=== PATIENT | female | born 1950 | race Caucasian/White ===

== ENCOUNTER → 2019-06-15 | Outpatient (CLI) | payer OTHER | END | disposition home or self-care (01) | LOC: RAD 13:39 | DX: M25.512 Pain in left shoulder (principal) ==

== ENCOUNTER 2019-12-21 08:14 | Outpatient (CLI) | payer OTHER | END 2019-12-21 08:31 | disposition home or self-care (01) | LOC: NUCLEAR 08:14 | PROVIDERS: ATTEND Internal Medicine | DX: C85.88 Other specified types of non-Hodgkin lymphoma, lymph nodes of multiple sites (principal) | CPT/HCPCS: 78815; A9552 ==

== ENCOUNTER 2020-08-29 08:00 | Outpatient (CLI) | payer OTHER | END 2020-08-29 08:03 | disposition home or self-care (01) | LOC: NUCLEAR 08:00 | PROVIDERS: ATTEND Emergency Medicine | DX: C85.88 Other specified types of non-Hodgkin lymphoma, lymph nodes of multiple sites (principal); R11.2 Nausea with vomiting, unspecified | CPT/HCPCS: 78816; A9552 ==

== ENCOUNTER → 2020-12-13 | Outpatient (CLI) | payer OTHER | END | disposition home or self-care (01) | LOC: MAMO-SONO 09:33 | PROVIDERS: ATTEND Internal Medicine | DX: N60.12 Diffuse cystic mastopathy of left breast (principal); N60.11 Diffuse cystic mastopathy of right breast; Z12.31 Encounter for screening mammogram for malignant neoplasm of breast ==

== ENCOUNTER 2021-02-23 08:14 | Outpatient (CLI) | payer OTHER | END 2021-02-23 10:04 | disposition home or self-care (01) | LOC: TOM 08:14 | DX: R10.84 Generalized abdominal pain (principal); D18.09 Hemangioma of other sites; C85.80 Other specified types of non-Hodgkin lymphoma, unspecified site; R11.2 Nausea with vomiting, unspecified | CPT/HCPCS: 70491; 71260; 74177; Q9965 ==

== ENCOUNTER 2021-08-31 07:15 | Outpatient (CLI) | payer OTHER | END 2021-08-31 07:19 | disposition home or self-care (01) | LOC: TOM 07:15 | PROVIDERS: ATTEND Internal Medicine Hematology & Oncology | DX: C85.80 Other specified types of non-Hodgkin lymphoma, unspecified site (principal); R11.2 Nausea with vomiting, unspecified | CPT/HCPCS: 70491; 71260; 74177; Q9965 ==

== ENCOUNTER 2022-02-07 07:07 | Outpatient (CLI) | payer OTHER | END 2022-02-07 07:15 | disposition home or self-care (01) | LOC: MAMO-SONO 07:07 | PROVIDERS: ATTEND Internal Medicine | DX: N63.0 Unspecified lump in unspecified breast (principal); N63.11 Unspecified lump in the right breast, upper outer quadrant; N63.42 Unspecified lump in left breast, subareolar ==

== ENCOUNTER 2022-02-28 13:14 | Outpatient (CLI) | payer OTHER | END 2022-02-28 13:18 | disposition home or self-care (01) | LOC: NUCLEAR 13:14 | PROVIDERS: ATTEND Internal Medicine | DX: M81.0 Age-related osteoporosis without current pathological fracture (principal) ==

== ENCOUNTER → 2022-03-11 | Outpatient (CLI) | payer OTHER | END | disposition home or self-care (01) | LOC: TOM 07:20 | PROVIDERS: ATTEND Internal Medicine Hematology & Oncology | DX: C85.80 Other specified types of non-Hodgkin lymphoma, unspecified site (principal); R11.2 Nausea with vomiting, unspecified | CPT/HCPCS: 70491; 71260; 74177; Q9965 ==

== ENCOUNTER 2022-06-24 12:01 | Emergency (ER) | payer OTHER ==
[~2022-06-24] VITALS: Ht 160 cm; Wt 70.3 kg
[2022-06-24] MEDS ORDERED: ZYRTEC10 MG PO (18:06)
[2022-06-24] MEDS ORDERED: PEPCID AC20 MG PO (18:06)
== END 2022-06-24 18:22 | disposition home or self-care (01) ==
LOC: ER 12:01
DX: R10.9 Unspecified abdominal pain (principal); Z88.6 Allergy status to analgesic agent; Z88.0 Allergy status to penicillin; Z20.822 Contact with and (suspected) exposure to COVID-19

== ENCOUNTER 2022-08-09 12:09 | Outpatient (CLI) | payer OTHER ==
[~2022-08-09 12:09] MED LIST: PEPCID AC20 MG PO; ZYRTEC10 MG PO
== END 2022-08-09 12:18 | disposition home or self-care (01) ==
LOC: RAD 12:09
PROVIDERS: ATTEND Internal Medicine
DX: J44.9 Chronic obstructive pulmonary disease, unspecified (principal)

== ENCOUNTER 2022-12-13 07:32 | Outpatient (CLI) | payer OTHER | END 2022-12-13 07:33 | disposition home or self-care (01) | LOC: NUCLEAR 07:32 | PROVIDERS: ATTEND Internal Medicine Hematology & Oncology | DX: C85.80 Other specified types of non-Hodgkin lymphoma, unspecified site (principal); R11.2 Nausea with vomiting, unspecified | CPT/HCPCS: 78815; A9552 ==

== ENCOUNTER 2023-06-05 07:54 | Outpatient (CLI) | payer OTHER | END 2023-06-05 08:04 | disposition home or self-care (01) | LOC: TOM 07:54 | PROVIDERS: ATTEND Internal Medicine Hematology & Oncology | DX: C85.80 Other specified types of non-Hodgkin lymphoma, unspecified site (principal); R11.2 Nausea with vomiting, unspecified | CPT/HCPCS: 70491; 71260; 74177; Q9965 ==

== ENCOUNTER 2023-06-16 07:08 | Outpatient (CLI) | payer OTHER | END 2023-06-16 07:11 | disposition home or self-care (01) | LOC: MAMO-SONO 07:08 | PROVIDERS: ATTEND Internal Medicine | DX: N63.0 Unspecified lump in unspecified breast (principal); N63.11 Unspecified lump in the right breast, upper outer quadrant; N63.42 Unspecified lump in left breast, subareolar; Z12.31 Encounter for screening mammogram for malignant neoplasm of breast ==

== ENCOUNTER 2024-06-21 07:58 | Outpatient (CLI) | payer OTHER | END 2024-06-21 07:59 | disposition home or self-care (01) | LOC: NUCLEAR 07:58 | PROVIDERS: ATTEND Internal Medicine Hematology & Oncology | DX: Z85.72 Personal history of non-Hodgkin lymphomas (principal) | CPT/HCPCS: 78816; A9552 ==

== ENCOUNTER 2025-03-31 07:23 | Outpatient (CLI) | payer OTHER | END 2025-03-31 07:25 | disposition home or self-care (01) | LOC: MAMO-SONO 07:23 | PROVIDERS: ATTEND Internal Medicine | DX: N63.0 Unspecified lump in unspecified breast (principal); N63.11 Unspecified lump in the right breast, upper outer quadrant; N63.42 Unspecified lump in left breast, subareolar; Z12.31 Encounter for screening mammogram for malignant neoplasm of breast ==